=== PATIENT | female | born 1985 | race Caucasian/White ===

== ENCOUNTER → 2017-01-23 | Outpatient (CLI) | payer OTHER ==
[~2017-01-23] VITALS: Ht 165.1 cm; Wt 82.0 kg
[~2017-01-23] MED LIST: ENDOCET 5-3251 EACH PO; IBUPROFEN800 MG PO; PRENATAL TABLE1 EAC3 PO
[2017-01-23 16:22] VITALS: BP 111/68
== END | disposition home or self-care (01) ==
LOC: IVINF 01-18 10:30
DX: Z31.82 Encounter for Rh incompatibility status (principal); Z3A.28 28 weeks gestation of pregnancy; Z67.41 Type O blood, Rh negative
CPT/HCPCS: 96372; J2790

== ENCOUNTER 2017-02-09 18:15 | Emergency (ER) | payer OTHER ==
[~2017-02-09] VITALS: Ht 165.1 cm; Wt 85.9 kg
[2017-02-09 19:29] LABS: ADD MIUA? YES; BILIRUBIN NEGATIVE; BLOOD NEGATIVE; COLOR YELLOW ((YELLOW)); GLUCOSE (STRIP) 50; KETONES 80; LEUKOCYTES NEGATIVE; NITRITE NEGATIVE; PROTEIN (STRIP) 30; SPECIFIC GRAVITY 1.015 (1.000-1.030); UROBILINOGEN 0.2 MG/DL (0.2-1.0)
[2017-02-09 19:48] LABS: BACTERIA RARE /HPF; EPITHELIAL CELLS 3+ /HPF; MUCUS TRACE /LPF; RED BLOOD CELLS 0-5 /HPF (0-5); WHITE BLOOD CELLS 0-5 /HPF (0-5)
[2017-02-09 22:00] VITALS: BP 139/77
== END 2017-02-09 22:15 | disposition home or self-care (01) ==
LOC: EME 18:15
PROVIDERS: Physician Assistant
DX: O99.513 Diseases of the respiratory system complicating pregnancy, third trimester (principal); J06.9 Acute upper respiratory infection, unspecified; Z3A.31 31 weeks gestation of pregnancy
CPT/HCPCS: 81003; 99281; 99285; J7030

== ENCOUNTER 2017-04-10 19:36 | Inpatient (IN) | payer OTHER ==
[~2017-04-10] VITALS: Ht 165.1 cm; Wt 91.8 kg
[2017-04-10 21:06] VITALS: BP 137/83
[2017-04-10 21:22] LABS: EOSINOPHIL (%) 0.9 % (0-5); EOSINOPHIL COUNT 0.1 K/uL (0-0.3); HEMATOCRIT 29.1 % (36.0-46.0); IMMATURE GRANULOCYTE (%) 0.5 % (0.0-0.7); INSTRUMENT ABS NEUTROPHIL CT 6.3 K/uL; LYMPHOCYTE COUNT 1.9 K/uL (1.0-2.8); MCH 23.7 PG (29.0-34.0); MCHC 29.9 G/DL (30.0-36.0); MCV 79.3 FL (83-99); MEAN PLAT.VOLUME 12.2 uM^3 (9.5-12.4); MONOCYTE (%) 5.5 % (3-12); MONOCYTE COUNT 0.5 K/uL (0-0.8); NEUTROPHIL COUNT 6.3 K/uL (1.8-6.4); NRBC (%) 0.2 /100 WBC (0-0); PLATELET COUNT 183 K/uL (156-360); RBC DIS.WIDTH-CV 15.7 % (11.8-14.6); RBC DIS.WIDTH-SD 44.1 % (39-53); RED BLOOD COUNT 3.67 M/uL (3.80-5.20); WHITE BLOOD COUNT 8.9 K/uL (4.1-10.2)
[2017-04-10 22:03] VITALS: BP 122/73
[2017-04-10 22:55] VITALS: BP 131/83
[2017-04-10 23:57] VITALS: BP 137/81
[2017-04-11] VITALS (10 sets, daily range): BP systolic 120–150; BP diastolic 59–83
[2017-04-11] MEDS ORDERED: MOTRIN800 MG PO (00:44)
[2017-04-12 07:20] VITALS: BP 118/66
== END 2017-04-12 14:05 | disposition home or self-care (01) | DRG 775 ==
LOC: LDRP-OP → 2WEST 19:42 → LDRP-OP 05-10 09:33
PROVIDERS: Nurse Practitioner
PROC: 10907ZC Drainage of Amniotic Fluid, Therapeutic from Products of Conception, Via Natural or Artificial Opening (ICD-10-PCS; principal; 2017-04-11)
PROC: 10E0XZZ Delivery of Products of Conception, External Approach (ICD-10-PCS; principal; 2017-04-11)
DX: O80 Encounter for full-term uncomplicated delivery (principal); Z3A.40 40 weeks gestation of pregnancy; Z37.0 Single live birth
CPT/HCPCS: 83030; 85025; 86850; 86870; 86900; 86901; 90686; G0378; J2590; J2790